=== PATIENT | female | born 1955 | race Caucasian/White ===

== ENCOUNTER 2020-02-19 21:55 | Inpatient (IN) | payer OTHER ==
[~2020-02-19] VITALS: Ht 152.4 cm; Wt 89.4 kg
[2020-02-19 22:45] VITALS: BP 145/90
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
[2020-02-20 09:11] VITALS: BP 125/89
--- NOTE | 2020-02-20 12:42 | NUR ---
PATIENT CARE ASSUMED AT 0700 - PATIENT STATED HAD GOOD NIGHT SLEEP. CONFUSED AT TIMES - WEARS BILATERAL HEARING AIDS - CLAIMS HEARS THE VOICES WHEN THEY ARE UTILIZED. PATIENT STATED HAD RIGHT HEEL SURGERY AND UNCOMFORTABLE WHEN AMBULATING WITHOUT HER SHOES. WORKED WITH [facility] AND THEY CLAIM SHE IS VERY STEADY ON FEET WHEN MANUVERING WITH WALKER.
[2020-02-20 16:01] LABS: ABSOLUTE NEUTROPHILS 3.6 thou/uL (1.4-8.2); EOSINOPHILS 2.2 % (0.0-3.0); HEMATOCRIT 38.9 % (37.0-47.0); HEMOGLOBIN 12.7 gm/dL (12.0-15.0); LYMPHOCYTES 23.4 % (24.0-44.0); MCH 31.5 pg (26.0-34.0); MCHC 32.7 g/dL (28.0-37.0); MCV 96.3 fL (80.0-100.0); PLATELET COUNT 194 thou/uL (150-400); POLYS 63.4 % (36.0-66.0); RBC 4.04 mil/uL (4.20-5.00); RDW 13.6 % (10.5-14.5); WBC 5.6 thou/uL (4.0-11.0)
[2020-02-20 16:20] LABS: CALCIUM 9.6 mg/dL (8.5-10.1); CREATININE 0.8 mg/dL (0.6-1.0); MAGNESIUM 2.3 mg/dL (1.8-2.4); TOTAL BILIRUBIN 0.4 mg/dL (0.2-1.0); TOTAL PROTEIN 8.2 g/dL (6.4-8.2)
[2020-02-20 19:31] VITALS: BP 142/73
--- NOTE | 2020-02-21 01:44 | NUR ---
ASSUMED PT CARE AT AROUND 1915 HRS. PT OBSERVED IN ROOM SITTING ON HER BED. PT IS A FALL RISK.SHE HAS A BSC THAT SHE USES WELL WALKER. UA COLLECTED AND SENT DOWN. PT ALSO TAKEN DOWN FOR AN ABDOMINAL XRAY. PT DENIES ANY PAIN FOR ME.SHE STILL C/O HEARING VOICES BUT SHE COULD NOT TELL ME WHAT THE VOICES ARE TELLING HER. SHE IS CALM AND COOPERATIVE WITH CARES.
[2020-02-21 03:47] LABS: URINE BILIRUBIN NEGATIVE (Negative); URINE BLOOD NEGATIVE (Negative); URINE CLARITY CLEAR; URINE COLOR YELLOW; URINE GLUCOSE-RANDOM* NEGATIVE (Negative); URINE KETONES NEGATIVE (Negative); URINE LEUKOCYTES-REFLEX TRACE (Negative); URINE NITRITE-REFLEX NEGATIVE (Negative); URINE PROTEIN (DIPSTICK) NEGATIVE (Negative); URINE SPECIFIC GRAVITY <= 1.005 (1.005-1.035); URINE UROBILINOGEN 0.2 E.U./dl (0.2-1.0)
[2020-02-21 09:13] VITALS: BP 117/79
[2020-02-21 21:09] VITALS: BP 118/79
--- NOTE | 2020-02-22 01:13 | NUR ---
Pt alert and oriented x4. Pt was in her room at time of assessment. Pt denies anxiety and/or depression. Pt denies SI/HI. Pt reported some paranoia, voicing that she felt everybody was out to get her. Pt voiced that she is feeling better though. Pt took meds whole without problems. Pt now in bed, sleeping. Will continue to monitor. Pt's step-sister (Mandy), who claimed to be her DPOA (nursing did not find documentation for this) called at shift change requesting updates. Nursing informed Ms Galvan that she will get a call back as shift change was happening. Ms Galvan voiced that she would want daily update on how pt is doing. Will pass on in the am.
[2020-02-22 09:16] VITALS: BP 107/54
--- NOTE | 2020-02-22 13:29 | NUR ---
VISIBLE IN DAYROOM UPON INITIAL ASSESSMENT THIS AM-VISITING AT BREAKFAST TABLW WITH FEMALE PEERS AND IS ANIMATED IN FACIAL/EXPRESSION/CONVERSATION. COMPLIENT WITH TAKING SCHEDULED MEDICATIONS-NO NOTED PSYCHOSIS DURING BRIEF INITIAL AM CONVERSATION BUT LATER IN SHIFT WAS REPORTED TO BE HOLDING NEWSPAPER LIKE IT WAS HER CAT AND REFERRING TO IT HER CAT.
--- NOTE | 2020-02-22 15:09 | NUR ---
SW met with pt to complete psychosocial on 02/21/2020. Pt said for 2 months she has felt like she is being watched. She also reports that her telephone is tapped and she hears voices all the time right now; she hears them less with her hearing aides. She also believes someone is stealing her identity. She said she has a hx of etoh usage; she has had 3 dui's. She said the last one she got at the age of 64. She also reports to not drinking since 02/2019. She also said her mom had a dx of schizophrenia. She was recently hospitalized at [facility] from 02/10-02/15. She says she was there because a neighbor said she took too many tylenol pills. She denies SI and HI. She states her feelings are more ones of hopelessness. She is tired of hearing the voices constantly. SW team will continue to follow pt during her stay on this unit.
[2020-02-22 20:14] VITALS: BP 127/70
--- NOTE | 2020-02-23 03:45 | NUR ---
Assumed pt's care this pm shift. Pt was in her room at time of assessment. Denied pain. Denied AH/HV. Pt was calm and cooperative. took meds whole with no problems. Pt complained of buttom being ree and bleeding. Nursing assessment, found pt's buttock crack to be a little excoriated but no acitve bleeding. Barrier clream applied. Will continue to monitor.
[2020-02-23 13:29] VITALS: BP 113/76
--- NOTE | 2020-02-23 15:51 | NUR ---
During tx team dr. Toledo discussed pt should be ready for d/c on Wed. YOGESH received a msg that James Galvan ([phone]) would like to speak to YOGESH in regards to pt. She is the SW for pt at her living space. YOGESH called. No answer. SW left msg. SW team will continue to follow pt during her stay
--- NOTE | 2020-02-23 15:55 | NUR ---
REFUSED AM ABILIFY REPORTING THAT IT MADE HER TOO SLEEPY-MD NOTIFIED AND DOSE CHANGED TO 10MG AT HS. SOCIAL WITH FEMALE PEERS IN DAYROOM DURING UNSTRUCTURED TIME. DURING 1;1 DOES REPORT CONTINUED AUDITORY HALLUCINATIONS BUT SMILES BROADLY WHEN SPEAKING ABOUT THEM STATING "I JUST IGNORE THEM THEY CAN'T BOTHER ME UNLESS I LET THEM"HAS BEEN WORKING ON ASSIGNMENT ABOUT COPING SKILLS AND IS ABLE TO ID 1-2 WAYS OF DEALING WITH HER FEAR AND ANXIETY. REPORTS POOR SLEEP LAST PM AND DESCRIBES OVERALL MOOD "TIRED" DENIES SI/SH/HI. DENIES C/O PHYSICAL PAIN/DISCOMFORT. GAIT STEADY WITHOUT ASSISTIVE DEVICES.
[2020-02-23 19:57] VITALS: BP 106/67
[2020-02-24 00:41] VITALS: BP 106/67
--- NOTE | 2020-02-24 02:28 | NUR ---
Assumed care on 02/19/20 @ 19:15, seated in the day room watching tv and socializing with peers. cooperated with assessment and medication administration. VSS, assessment WNL. Denies anxiety, depression SI/HI/AH/VH. Reports diahrrhea earlier today x2-3. New order for lactobacillis. In bed with eyes closed and respirations even and unlabored. Will continue to monitor for patient safety and comfort.
[2020-02-24 09:32] VITALS: BP 106/67
[2020-02-24 09:38] VITALS: BP 128/62
--- NOTE | 2020-02-24 11:15 | NUR ---
PATIENT HAVING HALLUCINATIONS THAT THERE IS A CONSPIRACY GOING ON. SHE TOOK HER HEARING AIDS OFF AT BREAKFAST TO TRY AND AVOID THE VOICES BUT HEARD THEM THRU HER BRAIN. PATIENT STATES THAT PEOPLE ARE WORKING WITH THE PRESIDENT OF [place] TO LET HIM KNOW EVERYTHING THAT SHE DOES. SHE HAS BEEN PLEASANT AND COOPERATIVE AND STATES SHE JUST TRIES TO IGNORE THE VOICES. SPOKE WITH HER STEP SISTER, YFN BY PHONE TODAY WHEN SHE CALLED TO CHECK ON PATIENT. PATIENT EATING WELL AT MEALS. AMBULATES WITH WALKER. DENIES SI/HI.
--- NOTE | 2020-02-24 14:23 | NUR ---
[place] CREAM APPLIED TO PATIENT'S PERIANAL AREA. AREA LOOKS LIGHT PINK WITHOUT IRRITATION. PATIENT STATES IT'S NOT SORE ANY LONGER. PATIENT LAYING DOWN FOR NAP NOW. SHE SAT UP AND COLORED FOR AWHILE. AT THIS TIME SHE STATES THAT THE VOICES SHE HEARS STOP WHEN SHE TAKES HER HEARING AIDS OFF. HEARING AIDS OFF AT THIS TIME.
--- NOTE | 2020-02-25 02:14 | NUR ---
Assumed care on 02/24/20 @ 19:15, seated in the day room watching tv and socializing with peers. Cooperated with assessment, VSS, assessment findings WNL, yellow fall risk, ambulating with a walker. NOORVIK and confused, A&O x 3-4. Has the delusional thinking that she hears the President's voice telling her what she is doing, her hearing aides feed information to the president, and that it is better when she takes her hearing aides out, so she prefers not to wear hearing aides because of this. Nystatin ointment applied to anus as per order, reports that her bottom feels better today, after being treated. In bed at this time writing, eyes closed, respirations even and unlabored. Will continue to monitor as per protocol for patient safety and comfort.
[2020-02-25 07:00] VITALS: BP 111/78
--- NOTE | 2020-02-25 13:55 | NUR ---
ANXIOUS FACIAL EXPRESSION. INTERACTIVE WITH STAFF AND PEERS CONVERSATION FOCUSED MAINLY ON SOMATIC COMPLAINTS-DOES REPORT A/V HALLUCINATIONS IN FORM OF HEARING VOICES COME THROUGH THE CAMILO OF THE UNIT-ISN;T SURE WHAT THEY ARE TELLING HER BUT STATES "I'M NOT SCARES OF THEM I CAN JUST IGNORE THEM"
[2020-02-25 20:41] VITALS: BP 120/66
--- NOTE | 2020-02-26 02:28 | NUR ---
Assumed care on 02/25/20 @ 19:15, seated in the day room socializing with peers and drawing with coloring pencils. Cooperated with assessment, no abnormal conditions auscultated. VSS, Took meds whole with water, compliant with medication administration. Nystatin ointment provided to anus and gluteal cleft for redness. Reports improved. Had BM 02/24. Noted to be [place], Denies SI/HI/Depression. Reports some anxiety. Reports hallucinations are not bothering her very much, saying "I just ignor them". 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 Will continue to monitor as per protocol. Bed in low position.
[2020-02-26 08:52] VITALS: BP 119/84
[2020-02-26 13:11] VITALS: BP 119/84
--- NOTE | 2020-02-26 15:15 | NUR ---
YOGESH received a call from Quynh who works for pt's apartment building. She asked for a return call be made to [phone]. SW team will continue to follow pt during her stay on this unit.
--- NOTE | 2020-02-26 15:19 | NUR ---
RT Progress Note- Clarissa is an active participant in both the milieu and recreation groups. She has befriended a select amount of female patients on the unit and spends her unscheduled time socializing with them. She provides well constructed thoughts during group discussions and has plenty of insight and coping skill ideas to manage her hallucinations.
[2020-02-26 19:57] VITALS: BP 130/79
[2020-02-26 20:17] LABS: URINE BILIRUBIN NEGATIVE (Negative); URINE BLOOD NEGATIVE (Negative); URINE CLARITY CLEAR; URINE COLOR YELLOW; URINE GLUCOSE-RANDOM* NEGATIVE (Negative); URINE KETONES NEGATIVE (Negative); URINE LEUKOCYTES 2+ (Negative); URINE NITRITE NEGATIVE (Negative); URINE PROTEIN (DIPSTICK) NEGATIVE (Negative); URINE UROBILINOGEN 0.2 E.U./dl (0.2-1.0)
[2020-02-26 20:40] LABS: BACTERIA 1-9 Few /HPF (None Seen); CASTS None Seen /LPF (None Seen); MUCUS 0-3 Light strn/LPF (None Seen); SQUAMOUS 0-3 Few /LPF (0-3); URINE RBC 0-2 Rare /HPF (0-2); URINE WBC 6-15 Few /HPF (0-5)
[2020-02-26 20:41] LABS: CRYSTALS None Seen /LPF (None Seen)
--- NOTE | 2020-02-27 04:56 | NUR ---
02-26-20 CARE TRANSFERED 1914 OBSERVED PT WALKING IN HALLWAY WITH WALKER. 193 PT AAOX3, VSS, RR EVEN AND NONLABORED, PT DENIES ANY PAIN AND SI/HI. RECEIVED 80ML LIGHT YELLOW, NO SEDIMENT OR FOUL ODOR NOTED, CLEAN CATCH AND SENT TO LAB. PT HAS BEEN CALM AND COOPERATIVE THROUGHOUT NURSING ASSESSMENT. DURING MEDICATION ADMIN NO DIFFICULTIES. ZERO S/S OF ACUTE DISTRESS NOTED, PT WILL CONTINUE TO BE MONITOR PER B PROTOCOL.
[2020-02-27 05:34] LABS: HEMATOCRIT 35.5 % (37.0-47.0); MCHC 33.8 g/dL (28.0-37.0); MCV 94.6 fL (80.0-100.0); RBC 3.75 mil/uL (4.20-5.00); RDW 13.7 % (10.5-14.5); WBC 3.8 thou/uL (4.0-11.0)
[2020-02-27 05:55] LABS: ALBUMIN 3.4 g/dL (3.4-5.0); CALCIUM 8.9 mg/dL (8.5-10.1); CREATININE 0.8 mg/dL (0.6-1.0); TOTAL BILIRUBIN 0.4 mg/dL (0.2-1.0)
[2020-02-27 07:30] VITALS: BP 126/71
--- NOTE | 2020-02-27 09:08 | NUR ---
ASSUMED CARE AT 070O THIS MORNING. PT. UP, DRESSED AND ON THE UNIT, FOR MEALS AND MEDICATIONS. SHE TOOK HER MEDICATIONS WITHOUT PROBLEMS NOTED. SHE WAS AT A TABLE AND INTERACTING WITH SEVERAL SELECT PEERS. SHE WAS IN A CHEERFUL MOOD.
--- NOTE | 2020-02-27 11:19 | NUR ---
YOGESH spoke with Dr. Toledo who said O/T told her that pt passed her JAMES and is not currently in need of 24 hour supports and supervision. YOGESH contacted Quynh and provided her an update on pt's JAMES and that pt will be returning tomorrow. SW team will continue to follow pt during her stay on this unit.
[2020-02-27 12:12] VITALS: BP 126/71
--- NOTE | 2020-02-27 12:54 | NUR ---
ASSUMED CARE AT 0700 THIS VANDANA. PT. HAS BEEN PLEASANT TO THIS RN AND HAS INTERACTED WITH SELECT PEERS IN THE DINING ROOM. SHE TOOK HER MORNING MEDICATIONS WITHOUT DIFFICULTY. SHE ATTENDED MORNING GROUP. NOTED TO SMILE WHILE PEERS WERE TALKING. SHE HAS BEEN CALM AND COOPERATIVE.
[2020-02-27 19:31] VITALS: BP 120/52
--- NOTE | 2020-02-28 04:16 | NUR ---
02-27-20 CARE TRANSFERED 1899. 1924 PT SITTIN ON BUNK IN ROOM WITH EYES OPEN. PT AAOX3, VSS, RR EVEN AND NONLABORED ON RA. PT DENIES PAIN AND SI/HI. PT DENIES ANY NEW CONCERNS AT THIS TIME. PT REPORTED HAVING A SMALL BM AFTER DINNER TODAY. PT HAS BEEN CALM AND COOPERATIVE THROUGHOUT NURSING ASSESSMENT. PT DID REPORT SHE HAS BEEN MISSING HER CAT AND SHE IS WORRIED AND HAS A SADDEN EXPRESSION ON HER FACE. LATER OBSERVED PT MOVING DOWN HALLWAY TO DINING ROOM FOR HS SNACK, PT HAD 100% OF ICE CREAM. DURING MEDICATION ADMIN PT HAD NO DIFFICULTIES. LATER ASSISTED WITH REPOSITION BED TO PT COMFORT. ZERO S/S OF ACUTE DISTRESS NOTED, PT WILL CONTINUE TO BE MONITOR PER [facility] PROTOCOL.
[2020-02-28 07:28] VITALS: BP 128/82
--- NOTE | 2020-02-28 09:32 | NUR ---
Assumed care 0700. No complaints voiced. Alert and oriented to person, time, date, place, purpose. Looking forward to going home. Self fed breakfast.
--- NOTE | 2020-02-28 09:43 | NUR ---
Yesterday, YOGESH made an appt with Dr. Vargas with [facility] for 03/18/2020 @1130 am in person. YOGESH also asked she be put on the cancellation list. SW team will continue to follow pt during her stay on this unit.
[2020-02-28] MEDS ORDERED: ARICEPT10 MG PO (10:18)
[2020-02-28] MEDS ORDERED: ABILIFY 5 MG TAB5 M1 PO (10:19)
[2020-02-28] MEDS ORDERED: ACIDOPHILUS1 EAC4 PO (10:19)
[2020-02-28] MEDS ORDERED: ZOLOFT100 MG PO (10:19)
[2020-02-28] MEDS ORDERED: ADULT LOW DOSE81 MG PO (10:19)
[2020-02-28] MEDS ORDERED: LIPITOR40 MG PO (10:19)
[2020-02-28] MEDS ORDERED: MELATONIN5 M1 PO (10:20)
[2020-02-28] MEDS ORDERED: PRENATAL PO (10:22)
[2020-02-28 10:59] VITALS: BP 128/82
--- NOTE | 2020-02-28 11:38 | NUR ---
Patient teaching regarding discharge done. Patient left unit discharging 1135 accompanied by staff with paper packet, RX's, belongings, will get belongings from safe, and has cab voucher. To meet cable hooker at ER entrance. She denied SI/HI/AH/VH. No further c/o's. Said she was happy with her stay.
--- NOTE | 2020-02-28 13:03 | NUR ---
YOGESH D/C NOTE. YOGESH attempted 3x's to fax d/c docs to [facility]. YOGESH contacted [facility] [employer] who said they are having issues with their fax. No other needs for YOGESH team to address at this time.
== END 2020-02-28 11:00 | disposition home or self-care (01) | DRG 884 ==
LOC: SBH 21:55
PROVIDERS: Internal Medicine; Nurse Practitioner; Psychiatry & Neurology Psychiatry; ADMIT Psychiatry & Neurology Psychiatry; ATTEND Psychiatry & Neurology Psychiatry
DX: F01.50 Vascular dementia, unspecified severity, without behavioral disturbance, psychotic disturbance, mood disturbance, and anxiety (principal); F29 Unspecified psychosis not due to a substance or known physiological condition; E78.5 Hyperlipidemia, unspecified; F41.9 Anxiety disorder, unspecified; F32.9 Major depressive disorder, single episode, unspecified; M19.90 Unspecified osteoarthritis, unspecified site; R19.7 Diarrhea, unspecified; M79.651 Pain in right thigh; Z87.891 Personal history of nicotine dependence
CPT/HCPCS: 10880